=== PATIENT | female | born 1990 | race Caucasian/White ===

== ENCOUNTER 2022-06-14 16:17 | Day surgery (SDC) | payer OTHER, SELFPAY ==
[2022-06-14] VITALS (19 sets, daily range): BP systolic 85–115; BP diastolic 51–71; PULSE 62–101; RESP 12–18; TEMP 37.1–37.2; O2SAT 95–100; BMI 23.2
--- NOTE | 2022-06-14 17:17 | CRLHL7_ITS ---
For Patients: As a result of the Century Cures Act, medical imaging exams and procedure reports are released immediately into your electronic medical record. You may view this report before your referring provider. If you have questions, please contact your health care provider. INDICATION: Vaginal bleeding and pain TECHNIQUE: Ultrasound OB pelvis transvaginal. Real time travis scale imaging of the pelvis was performed. COMPARISON: None FINDINGS: No evidence for intrauterine . No fluid or debris in the endometrial canal. The endometrium is heterogeneous and thickened at 18 millimeters. The ovaries are of normal size. There are no suspicious fluid collections noted in the cul-de-sac. IMPRESSION: No evidence of intrauterine . No fluid or debris in the endometrial canal. The endometrium is heterogeneous and thickened at 18 millimeters. Normal right and left ovaries with no free fluid. No evidence for ectopic . Dictated by Sushant Gibson MD @ 06/14/2022 6:34:49 PM Dictated by: Sushant Gibson MD @ 06/14/2022 18:34:53 (Electronically Signed)
--- NOTE | 2022-06-14 17:21 | ED_ITS ---
HPI - General Time Seen by Provider: 17:10 Date Seen: 06/14/22 Chief complaint: OB/Uterine Contractions Stated complaint: Miscarriage Time Seen by Provider: 06/14/22 16:31 Source: patient, family, RN notes reviewed and old records reviewed Mode of arrival: ambulatory Limitations: no limitations History of Present Illness HPI Narrative: Rox is a very pleasant 31-year-old at approximately 9 weeks who reports ongoing vaginal bleeding that started this morning. Patient states that she has had some spotting since FridayJune 11. This morning the bleeding became much heavier and has continued. She states that she is passing tennis ball size clots. She is starting to feel somewhat nauseated but has not had any chest pain or shortness of breath. She notes that she does have pelvic pain but describes mostly pressure. Her previous 2 pregnancies were healthy. They were via [facility]. Her physician is at the [facility] in the [facility]. She denies any recent fever cough cold congestion. She states that she is at 9 weeks today. Patient notes that she is changing her pad every hour. No history of bleeding disorders. She does state that her mother is anemic. Per nursing patient is requesting something for pain. Patient tells me that she is A positive blood type. Related Data Home Medications Medication Instructions Recorded Confirmed No Known Home Medications 06/14/22 06/14/22 Allergies Allergy/AdvReac Type Severity Reaction Status Date / Time No Known Drug Allergies Allergy Verified 06/14/22 16:37 Review of Systems Status of ROS: Reports: 10 or more systems reviewed and unremarkable except as noted in History and below Const: Denies: fever or chills Eyes: Denies: change in vision ENMT: Denies: throat pain or neck pain Cardio: Denies: chest pain, palpitations or shortness of breath with exertion Resp: Denies: shortness of breath GI: Reports: nausea; Denies: vomiting or diarrhea : Reports: pelvic pain and vaginal bleeding; Denies: painful urination Musculo: Denies: neck pain Integ/Breast: Denies: rash Neuro: Denies: headache PFSH PFSH Social History Smoking Status: Never smoker How often do you have a drink containing alcohol: never AUDIT-C Alcohol total score: 0 Non-prescribed substance use: denies use service: No Exam Const: Vital Signs, click to edit/add: Vital Signs - 24 hr 06/14/22 16:31 06/14/22 17:30 06/14/22 18:00 Temperature 98.7 F Pulse Rate [Left P ulse Oximeter] 91 86 82 Respiratory Rate 16 14 16 Blood Pressure [ri ght upper arm] 106/71 90/63 106/68 Pulse Oximetry 97 99 100 Oxygen Delivery Me thod Room Air 06/14/22 18:45 06/14/22 19:00 06/14/22 19:30 Temperature Pulse Rate [Left P ulse Oximeter] 76 74 74 Respiratory Rate 14 14 18 Blood Pressure [ri ght upper arm] 88/57 L 86/51 L 102/65 Pulse Oximetry 99 100 100 Oxygen Delivery Me thod 06/14/22 20:13 06/14/22 20:00 Temperature Pulse Rate [Left P ulse Oximeter] 69 80 Respiratory Rate Blood Pressure [ri ght upper arm] 115/55 L 97/63 Pulse Oximetry 100 99 Oxygen Delivery Me thod Documenting provider has reviewed patient's vital signs: yes Common normals: oriented x3, no limitations, healthy appearing and alert General appearance: cooperative, comfortable and well kempt HENMT: Common normals: head/scalp atraumatic and external nose normal Head and scalp: atraumatic Nose: external nose normal Eye: Common normals: PERRL General eye: normal appearance of both eyes Pupil: PERRL Neck & C-Spine: Common normals: full ROM Resp: Common normals: normal respiratory effort and clear to auscultation bilaterally Effort & inspection: able to speak in complete sentences Auscultation: clear to auscultation bilaterally Cardio: Common normals: regular rate and regular rhythm Rate: regular rate Rhythm: regular rhythm GI: Common normals: soft to palpation and non-tender Palpation: soft Other: External vaginal area within normal limits. Moderate amount of blood on pad which was changed within the last 20 minutes. Neuro: Common normals: oriented x3 Sensorium/orientation: alert Psych: Appearance: well kempt Course Course Hospital Course: At this time will establish an IV, order labs of CBC, comprehensive panel, type and screen. Will also have ultrasound present to see if there are any retained products of conception. Reevaluation(s) Reevaluation #1: Patient was noted to become hypotensive prior to administration of morphine. IV fluids given. And blood pressure has improved. However, patient is symptomatic with dizziness lightheadedness when she is ambulating. She still is passing large clots per patient. She has just returned from the bathroom. Reevaluation #2: Patient noted to have a near syncopal episode when re-examining the bathroom. Large clot noted in the hat. Patient transferred successfully to her bed. Was hyperventilating and this improved. Awaiting or team. Consultations Consultation #1: Dr. Pascual, OBGYN marketing consultant, is called. Results of patient ultrasound as well as laboratory values are discussed. OBGYN marketing consultant will discuss with patient possibility of going to the OR. Vital Signs Vital signs: Initial Vital Signs Temperature 98.7 F 06/14/22 16:31 Temperature Source Temporal Artery Scan 06/14/22 16:31 Pulse Rate 91 06/14/22 16:31 Respiratory Rate 16 06/14/22 16:31 Blood Pressure 106/71 06/14/22 16:31 Blood Pressure Mean 82 06/14/22 16:31 Blood Pressure Position Supine 06/14/22 16:31 Pulse Oximetry 97 06/14/22 16:31 Oxygen Delivery Method 06/14/22 16:31 Vital Signs Temperature 98.7 F 06/14/22 16:31 Pulse Rate 91 06/14/22 16:31 Respiratory Rate 16 06/14/22 16:31 Blood Pressure 106/71 06/14/22 16:31 Pulse Oximetry 97 06/14/22 16:31 Oxygen Delivery Method 06/14/22 16:31 Temperature 98.7 F 06/14/22 16:31 Pulse Rate 69 06/14/22 20:13 Respiratory Rate 18 06/14/22 19:30 Blood Pressure 115/55 L 06/14/22 20:13 Pulse Oximetry 100 06/14/22 20:13 Oxygen Delivery Method 06/14/22 16:31 MDM - OB/Uterine Contractions MDM Narrative Medical decision making narrative: 1. Spontaneous -patient has suffered a miscarriage. No retained products noted on ultrasound. 2. Vaginal bleeding-patient continues to have vaginal bleeding. She is symptomatic when ambulating. Hemoglobin initially 13.2. I have spoken with OBGYN consulted in regards to this patient. There is discussion about going to OR for suction and curettage. 3. Disposition-patient will go to same-day surgery. Initially she was thinking about all options that Dr. Pascual presented to her. At this time her hemoglobin has dropped to 10.8. She did have episode of hypotension with a systolic blood pressure of 86. Patient has decided she will go through with suction curettage. OBGYN marketing consultant is informed. Or crew is going to be called in by the powerhouse tender. Lungs are clear. Patient last ate at approximately 1600 hours. It was a granola bar. No previous problems with anesthesia in patient or her family. Medical Records Attestation: I reviewed the patient's medical records. Lab Data Attestation: I reviewed the patient's lab results. Labs: Lab Results 06/14/22 06/14/22 06/14/22 Range/Units 17:23 17:23 17:23 WBC 9.45 (4.50-11.00) K/uL RBC 4.23 (4.00-5.20) m/uL Hgb 13.2 (12.0-16.0) gm/dL Hct 38.7 (33.0-51.0) % MCV 92 (80-100) fL MCH 31 (26-34) pg MCHC 34 (32-36) gm/dL RDW Coeff of Dilia 11.7 (11.5-15.5) % Plt Count 245 (140-440) K/uL Neut % (Auto) 78.1 H (42.0-72.0) % Lymph % (Auto) 14.2 L (20-44) % [place] % (Auto) 6.1 (0.0-11.0) % Eos % (Auto) 1.2 (0.0-7.0) % Baso % (Auto) 0.2 (0.0-3.0) % Neut # (Auto) 7.40 H (1.7-7.0) K/uL Lymph # (Auto) 1.30 (0.90-2.90) K/uL [place] # (Auto) 0.60 (0.00-0.90) K/UL Eos # (Auto) 0.11 (0.00-0.50) K/uL Baso # (Auto) 0.02 (0.00-0.30) K/uL Abs Immat Gran (auto) 0.02 (0.00-0.30) K/uL Sodium 138 (135-149) mmol/L Potassium 3.7 (3.6-5.1) mmol/L Chloride 103 (96-114) mmol/L Carbon Dioxide 26 (20-32) mmol/L BUN 12 (5-24) mg/dL Creatinine 0.7 (0.5-1.5) mg/dL Estimated Creat Clear 98.71 Estimated GFR 117 ml/min Glucose 126 H (60-115) mg/dL Calcium 8.8 (8.4-10.6) mg/dL HCG, Quant 72157.00 mIU/mL SARS-CoV-2 Ag (Rapid) (Negative) 06/14/22 06/14/22 Range/Units 19:40 19:52 WBC (4.50-11.00) K/uL RBC (4.00-5.20) m/uL Hgb 10.8 L (12.0-16.0) gm/dL Hct (33.0-51.0) % MCV (80-100) fL MCH (26-34) pg MCHC (32-36) gm/dL RDW Coeff of Dilia (11.5-15.5) % Plt Count (140-440) K/uL Neut % (Auto) (42.0-72.0) % Lymph % (Auto) (20-44) % [place] % (Auto) (0.0-11.0) % Eos % (Auto) (0.0-7.0) % Baso % (Auto) (0.0-3.0) % Neut # (Auto) (1.7-7.0) K/uL Lymph # (Auto) (0.90-2.90) K/uL [place] # (Auto) (0.00-0.90) K/UL Eos # (Auto) (0.00-0.50) K/uL Baso # (Auto) (0.00-0.30) K/uL Abs Immat Gran (auto) (0.00-0.30) K/uL Sodium (135-149) mmol/L Potassium (3.6-5.1) mmol/L Chloride (96-114) mmol/L Carbon Dioxide (20-32) mmol/L BUN (5-24) mg/dL Creatinine (0.5-1.5) mg/dL Estimated Creat Clear Estimated GFR ml/min Glucose (60-115) mg/dL Calcium (8.4-10.6) mg/dL HCG, Quant mIU/mL SARS-CoV-2 Ag (Rapid) Negative (Negative) Imaging Data Pelvic ultrasound: Attestation: I have reviewed the pertinent imaging results. Radiologist's impression: Uterine lining at 18 mm. No evidence of retained products. Critical Care Time Critical Care Time Critical Care Time: Yes Attestation: The patient required my highest level preparedness to intervene emergently and I personally spent this critical care time directly and personally managing the patient. This critical care time included: Obtaining a history; Examining the patient; Pulse oximetry; Ordering and reviewing of studies; Arranging urgent treatment with development of a management plan; Evaluation of patients response to treatment; Frequent reassessment discussions with other providers. This critical care time was performed to assess and manage the high probability of imminent life-threatening deterioration that could result in multiorgan failure. It was exclusive of separate billable procedures and treating other patients and teaching time. Total Critical Care Time in Minutes: 60 Discharge Plan Discharge Clinical Impression: Incomplete miscarriage with blood clot Patient Disposition: Admitted As Inpatient Condition: Critical
[2022-06-14 17:29] LABS: Basophils Absolute Auto 0.02 K/uL (0.00-0.30); Basophils Percent Auto 0.2 % (0.0-3.0); Eosinophils Absolute Auto 0.11 K/uL (0.00-0.50); Eosinophils Percent Auto 1.2 % (0.0-7.0); Hematocrit 38.7 % (33.0-51.0); Hemoglobin* 13.2 gm/dL (12.0-16.0); Immature Granulocytes Abs Auto 0.02 K/uL (0.00-0.30); Lymphocytes Percent Auto 14.2 % (20-44); Mean Corpuscular HGB Conc 34 gm/dL (32-36); Mean Corpuscular Hemoglobin 31 pg (26-34); Mean Corpuscular Volume 92 fL (80-100); Monocytes Percent Auto 6.1 % (0.0-11.0); Neutrophils Percent Auto 78.1 % (42.0-72.0); Platelet Count* 245 K/uL (140-440); RDW Coefficient of Variation % 11.7 % (11.5-15.5); Red Blood Count 4.23 m/uL (4.00-5.20); White Blood Count* 9.45 K/uL (4.50-11.00)
[2022-06-14 17:30] LABS: Slide Review Reflex No
[2022-06-14] MEDS: ONDANSETRON 2 MG/ML inj 4 MG IVP (17:30)
[2022-06-14] MEDS: 0.9 % SODIUM CHLORIDE 500 ML 500 ML IV (17:30)
[2022-06-14 17:44] LABS: Chloride* 103 mmol/L (96-114); Potassium* 3.7 mmol/L (3.6-5.1); Sodium* 138 mmol/L (135-149)
[2022-06-14 17:46] LABS: Creatinine* 0.7 mg/dL (0.5-1.5); Est. Creatinine Clearance* 98.71; Estimated Glomerular Filt Rate 117 ml/min
[2022-06-14 17:47] LABS: Blood Urea Nitrogen* 12 mg/dL (5-24); Calcium* 8.8 mg/dL (8.4-10.6); Carbon Dioxide* 26 mmol/L (20-32); Glucose* 126 mg/dL (60-115)
[2022-06-14] MEDS: MORPHINE 4 MG/ML INJ IVP (17:51)
--- NOTE | 2022-06-14 18:40 | PC.NURSE ---
pt up to bathroom, brief changed
[2022-06-14 19:44] LABS: Hemoglobin* 10.8 gm/dL (12.0-16.0)
--- NOTE | 2022-06-14 20:02 | PM.GYNHPPRL ---
ELECTRONICS DETAIL DRAFTSPERSON - H&P: HPI Loss History of Present Illness Time Seen by Provider: 19:30 Date Seen: 06/14/22 Reason for admission: incomplete Planned procedure: suction D and C Last H&P: No Data to Display Narrative: Rox Flaherty is a 31 year old whose LMP was 7.11.2021. Three days ago, she began spotting, and two days ago uterine cramping ensued. This morning, cramping became very strong and she passed a large amount of clot into the toilet. Since then, cramping is somewhat lessened, but still described as strong. She presented to the ED reporting passage of tennis ball sized clots, soaking a pad every hour. Rox is presyncopal when upright, though pulse and BP stable when supine. Denies SOB at rest. Reports Rh positive. No personal history of hemorrhage or significant anesthesia reaction, even after two prior vaginal births. No family history abnormal bleeding or severe anesthesia reactions. Review of Systems Status of ROS: Reports: 6 or more systems reviewed and unremarkable except as noted in History and below [facility] Social History Smoking Status: Never smoker How often do you have a drink containing alcohol: never AUDIT-C Alcohol total score: 0 Non-prescribed substance use: denies use service: No Meds Home Medications and Allergies Home Medications Medication Instructions Recorded Confirmed Type No Known Home Medications 06/14/22 06/14/22 History Allergies Allergy/AdvReac Type Severity Reaction Status Date / Time No Known Drug Allergies Allergy Verified 06/14/22 16:37 ELECTRONICS DETAIL DRAFTSPERSON - Exam Physical Exam: Vital signs: Temp Pulse Resp BP Pulse Ox O2 Del Method 98.7 F 74 18 102/65 100 06/14/22 16:31 06/14/22 19:30 06/14/22 19:30 06/14/22 19:30 06/14/22 19:30 06/14/22 16:31 Constitutional: Constitutional: no acute distress, thin and cooperative Routine HEENT Exam: Head: Present normocephalic Routine Neck Exam: NECK: Present full ROM Routine Cardiovascular Exam: Cardiovascular: Present RRR Routine Exam: Comments: deferred until under anesthesia in OR Routine Extremities Exam: Extremities: Present full ROM and normal inspection Routine Neurological Exam: Neurological: Present alert and CN II-XII intact Routine Psychiatric Exam: Psychiatric: Present normal thought process and cooperative Detailed Psychiatric Exam: Mood and affect: Present tearful ELECTRONICS DETAIL DRAFTSPERSON - Results Labs Labs: Short CBC 06/14/22 06/14/22 Range/Units 17:23 19:40 WBC 9.45 (4.50-11.00) K/uL Hgb 13.2 10.8 L (12.0-16.0) gm/dL Hct 38.7 (33.0-51.0) % Plt Count 245 (140-440) K/uL BMP 06/14/22 17:23 Sodium 138 Potassium 3.7 Chloride 103 Carbon Dioxide 26 BUN 12 Creatinine 0.7 Glucose 126 H Calcium 8.8 Imaging US pelvis today reveals no IUP, 18mm stripe, normal adnexa: Attestation: I have reviewed the pertinent imaging results. Assessment and Plan Assessment and plan (1) Incomplete miscarriage with blood clot: Status: Acute Assessment and Plan: Complete spontaneous , with significant blood loss due to uterine atony and subsequent clotting preventing normal involution. Hemoglobin drop of 2.5g in two hours. Plan Discussed with patient and her the risks and benefits of alternatives for management of uterine subinvolution and persistent uterine bleeding, including bimanual expression, oral misoprostol, IM/IV oxytocin, and cervical dilation with suction curettage of uterine cavity. All her questions were answered to her satisfaction; she gave written informed consent to proceed to OR for outpatient dilation and suction curettage under MAC.
--- NOTE | 2022-06-14 20:19 | ED.NURSE ---
Pt up to BR. [place] light headed. Breathing rapidly. Assisted pt back to bed. Pt placed in Trendelenburg. VS updated.
[2022-06-14 20:33] LABS: SARS Antigen* Negative (Negative)
--- NOTE | 2022-06-14 21:08 | ED.NURSE ---
Pt to SDS via w/c
[2022-06-14] MEDS: LACTATED RINGERS 1000 ML 1,000 ML 125 ML IV (21:11)
--- NOTE | 2022-06-14 21:38 | W.PM.GYNPROC ---
Procedure Note Time Seen by Provider: 21:38 Date Seen: 06/14/22 Procedure Details: Procedure: Exam under anesthesia. Uterine suction curettage. Surgeon: Frandy Skelton MD Anesthesia: General Fluids: 600mL IV crystalloid EBL: 1mL Specimen: and endometrial tissue Findings: Normal vulva, urethral meatus, vagina. Large dark red clots of blood in vagina. Cervix dilated 2cm. Protruding placental tissue at external os. Midline, mobile, smoothly contoured retroverted uterus, sounding to 8cm. Normal bilateral adnexa. Indication: Heavy bleeding after spontaneous , resulting in unstable vital signs, syncope, and 2.5g drop of hemoglobin in 2H at ED. Risks and benefits of alternatives for management discussed with patient; all her questions answered to her satisfaction. She gave informed consent to proceed to OR for outpatient suction curettage. Procedure: Patient moved to supine position on OR table. General anesthesia initiated. She was prepped and draped in usual fashion. Exam under anesthesia revealed finding noted above. A timeout was held. The anterior aspect of the cervix was grasped with a ring forcep. 8F suction curette placed at uterine fundus. After suction reached normal level, curette was gently rotated and withdrawn; three passes completed. A large banjo sharp curette was used to gently explore all aspects of uterine cavity; good cri obtained throughout. A final pass made with suction curette. All instruments removed from uterus, cervix, and vagina. Sponge and instrument counts corrrect. All tissue obtained during exam and curettage were sent together for routine Pathology evaluation. The patient was given ketorolac 15mg IV at 2129. She tolerated procedure very well, and went to PACU in stable condition. She is expected to go home tonight.
--- NOTE | 2022-06-14 21:45 | W.ANESCHARGE ---
Anesthesia Charges Start Date/Time Anesthesia Start Date: 06/14/22 Anesthesia Start Time: 21:11 Stop Date/Time Anesthesia Stop Date: 06/14/22 Anesthesia Stop Time: 21:45 Summary Emergency: Yes
[2022-06-14 22:02] LABS: Basophils Absolute Auto 0.03 K/uL (0.00-0.30); Basophils Percent Auto 0.4 % (0.0-3.0); Eosinophils Absolute Auto 0.07 K/uL (0.00-0.50); Eosinophils Percent Auto 0.8 % (0.0-7.0); Hematocrit 29.4 % (33.0-51.0); Hemoglobin* 9.9 gm/dL (12.0-16.0); Immature Granulocytes Abs Auto 0.01 K/uL (0.00-0.30); Lymphocytes Percent Auto 16.3 % (20-44); Mean Corpuscular HGB Conc 34 gm/dL (32-36); Mean Corpuscular Hemoglobin 31 pg (26-34); Mean Corpuscular Volume 93 fL (80-100); Monocytes Percent Auto 7.1 % (0.0-11.0); Neutrophils Percent Auto 75.3 % (42.0-72.0); Platelet Count* 170 K/uL (140-440); RDW Coefficient of Variation % 11.6 % (11.5-15.5); Red Blood Count 3.17 m/uL (4.00-5.20); White Blood Count* 8.28 K/uL (4.50-11.00)
[2022-06-14 22:06] LABS: Slide Review Reflex No
--- NOTE | 2022-06-14 22:13 | SUR.PHASEI ---
PER ANESTHESIA, OK TO TRANSFER PATIENT TO [facility] PRIOR TO 30 MIN UPON HAVING THREE SETS OF STABLE VITAL SIGNS
--- NOTE | 2022-06-15 02:10 | PC.NURSE ---
pt pleasant and cooperative. Minimal vaginal bleeding noted upon arrival to floor. no c/o nausea. no c/o pain. Soft BP since admin to floor, Ankur called and was notified, per MD - encourage oral intake and fluids, & was okay with continuing the d/c. pt was asymptomatic with the soft BPs, she stated she does not know her typical BP. d/c packet reviewed, education provided & all questions answered. IV removed, cath intact. pt d/c home with at 0150.
== END 2022-06-15 01:50 | disposition home or self-care (01) ==
LOC: ED 20:42 → SS 21:14 → MEDSURG 22:02
PROVIDERS: Emergency Provider Family Medicine; PCP Family Medicine; Visit Provider Obstetrics & Gynecology
PROC: (CPT 59812; principal; 2022-06-14 21:30)
DX: O03.6 Delayed or excessive hemorrhage following complete or unspecified spontaneous abortion (principal); O03.1 Delayed or excessive hemorrhage following incomplete spontaneous abortion; R42 Dizziness and giddiness
CPT/HCPCS: 59812; 00940; 36415; 76817; 80048; 84702; 85018; 85025; 86850; 86900; 86901; 87426; 88305; 99140; 99284; 99285; 99291; J0330; J1100; J1200; J1885; J2250; J2270; J2405; J2704; J3010; J7120

== ENCOUNTER 2022-06-21 15:33 | Outpatient (CLI) | payer OTHER, SELFPAY | END 2022-06-21 15:34 | disposition home or self-care (01) | LOC: NFLDREF 07-05 08:57 | PROVIDERS: PCP Family Medicine; Visit Provider Physician Assistant | DX: D64.9 Anemia, unspecified (principal); R39.15 Urgency of urination | CPT/HCPCS: 87086 ==

== ENCOUNTER 2024-04-01 08:45 | Outpatient (CLI) | payer OTHER, SELFPAY | END 2024-04-01 08:46 | disposition home or self-care (01) | PROVIDERS: PCP Physician Assistant Medical; Visit Provider Physician Assistant Medical | DX: R19.4 Change in bowel habit (principal) | CPT/HCPCS: 80053; 84443 ==